=== PATIENT | male | born 1990 | race African-American/Black ===

== ENCOUNTER 2016-12-01 19:39 | Emergency (ER) | payer SELFPAY ==
[~2016-12-01] VITALS: Ht 172.7 cm; Wt 179.4 kg
--- NOTE | ~2016-12-01 | CR113 ---
[facility]. [facility] A Service of [facility] & [facility] RADIOLOGY TEXT RESULTS PATIENT: BRIAN MANNING JR LOCATION: SED : 88 UNIT #: [id number] AGE: [address]: Davon Cavazos MD SEX: M ORDER DR: [id number] [address] [id number] [id number] E MR#: [id number] Acc #: [id number] NAME: BRIAN MANNING JR : 1990 SEX: M STUDY DATE/TIME: 12/01/2016 20:05 UNIT: SED ROOM: STUDY DESCRIPTION: CR Finger 2 View [address] Attending Physician: Davon Cavazos M.D. Ordering Physician: Davon Cavazos M.D. Primary Care Physician: No Primary Care Physician MEDICAL IMAGING REPORT This report is preliminary unless electronic signature is present. EXAM Right fourth digit 3 views HISTORY Finger pain today after dislocation. FINDINGS 3 views of the right fourth digit are negative. Bone alignment is normal. No fracture, joint space narrowing or abnormal sclerosis. No opaque soft tissue foreign body. IMPRESSION Negative Dictated by... Bong Kauffman M.D. THIS IS AN ELECTRONICALLY VERIFIED REPORT Bong Kauffman M.D. at 12/02/2016 6:10 PM DFL/moo TD: 12/02/2016 01:14 JOB #: [id number] MEDICAL IMAGING REPORT Page 1 of 1
[~2016-12-01 19:39] MED LIST: FLEXERIL PO; HYDROCHLOROTHIA25 MG PO; KETOPROFEN PO; LISINOPRIL; ORUDIS75 M1 PO
== END 2016-12-01 21:28 | disposition home or self-care (01) ==
LOC: SED 19:39
DX: S63.284A Dislocation of proximal interphalangeal joint of right ring finger, initial encounter (principal); F17.200 Nicotine dependence, unspecified, uncomplicated; Y92.009 Unspecified place in unspecified non-institutional (private) residence as the place of occurrence of the external cause; I10 Essential (primary) hypertension; X58.XXXA Exposure to other specified factors, initial encounter
CPT/HCPCS: 26770; 73140; 99283